=== PATIENT | female | born 1965 | race African-American/Black ===

== ENCOUNTER 2023-12-04 15:14 | Emergency (ER) | payer BC, OTHER ==
[2023-12-04 15:23] VITALS: BP 146/83; PULSE 81; TEMP 98.4; BMI 30.5
[2023-12-04 18:18] VITALS: RESP 18
== END 2023-12-04 18:48 | disposition short-term general hospital (02) ==
LOC: JER 15:14 → JERFT 15:14
DX: H57.11 Ocular pain, right eye (principal); H02.841 Edema of right upper eyelid
CPT/HCPCS: 99285-25